=== PATIENT | female | born 1980 | race Caucasian/White ===

== ENCOUNTER 2017-11-24 13:06 | Emergency (ER) | payer OTHER | END 2017-11-24 14:32 | disposition home or self-care (01) | LOC: ER 13:06 | DX: R21 Rash and other nonspecific skin eruption (principal) | CPT/HCPCS: 99283 ==

== ENCOUNTER 2017-12-20 20:18 | Emergency (ER) | payer OTHER ==
[2017-12-20] MEDS: IBUPROFEN 800 MG TABLET. PO (21:29)
[2017-12-20] MEDS: MECLIZINE HCL 12.5 MG TABLET. PO (21:30)
[2017-12-20] MEDS: METOCLOPRAMIDE 10 MG TABLET. PO (21:30)
== END 2017-12-20 22:29 | disposition home or self-care (01) ==
LOC: ER 20:18
DX: R51 Headache (principal); R42 Dizziness and giddiness; H53.149 Visual discomfort, unspecified
CPT/HCPCS: 70450; 99284-25; J8597